=== PATIENT | female | born 1965 | race Caucasian/White ===

== ENCOUNTER 2023-10-20 08:32 | Emergency (ER) | payer OTHER ==
[2023-10-20 08:38] VITALS: BP 144/75; PULSE 82; RESP 16; TEMP 98.3; BMI 25.7
[2023-10-20] MEDS ORDERED: LIDOCAINE 5% TOPICAL PATCH TP ONE (09:31)
[2023-10-20] MEDS ORDERED: IBUPROFEN 400 MG TABLET (FP) PO ONE ×2 (09:31→09:42)
[2023-10-20] MEDS ORDERED: LIDOCAINE 4% PATCH TP ONE (09:42)
[2023-10-20] MEDS ORDERED: LIDOCAINE PATCH REMOVAL MC SCH (22:00)
== END 2023-10-20 10:48 | disposition home or self-care (01) ==
LOC: JER 08:32
DX: M25.511 Pain in right shoulder (principal)
CPT/HCPCS: 73030-TC-RT-FY; 93005; 93010; 99284-25